=== PATIENT | male | born 1960 | race Caucasian/White ===

== ENCOUNTER 2017-02-08 17:13 | Emergency (ER) | payer SELFPAY ==
[~2017-02-08] VITALS: Ht 177.8 cm; Wt 68.2 kg
[2017-02-08 18:04] VITALS: Ht 177.8 cm; Wt 68.2 kg
== END 2017-02-09 03:40 | disposition left against medical advice (07) ==
LOC: FTE 17:13 → E/R 02-09 03:40
DX: Z53.21 Procedure and treatment not carried out due to patient leaving prior to being seen by health care provider (principal)